=== PATIENT | male | born 1980 | race Caucasian/White ===

== ENCOUNTER 2025-05-06 19:53 | Emergency (ER) | payer SELFPAY ==
[2025-05-06] MEDS: traMADol 50 MG Tab PO ONE ×3 (20:17→20:28)
== END 2025-05-06 21:49 | disposition home or self-care (01) ==
LOC: KA.ED 19:53
DX: S83.412A Sprain of medial collateral ligament of left knee, initial encounter (principal); Z79.899 Other long term (current) drug therapy; V80.010A Animal-rider injured by fall from or being thrown from horse in noncollision accident, initial encounter; Y93.89 Activity, other specified
CPT/HCPCS: 73562-LT; 99283; A9270-GY